=== PATIENT | male | born 1980 | race Caucasian/White ===

== ENCOUNTER 2017-09-12 22:45 | Emergency (ER) | payer OTHER ==
[2017-09-12] MEDS: KETOROLAC 60 MG INJ IM (23:55)
== END 2017-09-13 01:17 | disposition home or self-care (01) ==
LOC: E/R 22:45
DX: S20.211A Contusion of right front wall of thorax, initial encounter (principal); R40.2252 Coma scale, best verbal response, oriented, at arrival to emergency department; F17.210 Nicotine dependence, cigarettes, uncomplicated; R40.2142 Coma scale, eyes open, spontaneous, at arrival to emergency department; R40.2362 Coma scale, best motor response, obeys commands, at arrival to emergency department; V49.50XA Passenger injured in collision with unspecified motor vehicles in traffic accident, initial encounter
CPT/HCPCS: 71045; 71100; 73030-RT; 93005; 99284-25